=== PATIENT | male | born 1965 | race Hispanic/Latino ===

== ENCOUNTER → 2018-03-04 | Day surgery (SDC) | payer BC ==
[~2018-03-04] MED LIST: FENTANYL CITRATE/PF 100MCG/2 ML INJ ONE; HYOSCYAMINE SULFATE 0.5 MG/ML AMP ONE; MIDAZOLAM HCL 2 MG/2 ML VIAL ONE; PRAVASTATIN SOD10 MG; PROPOFOL IV EMULSION 10 MG/ML 50 ML VIAL ONE; TYLENOL
--- NOTE | 2018-03-04 13:11 | Operative Report ---
DATE OF PROCEDURE: March 04, 2018 REFERRING PHYSICIAN: Dr. Cameron Knight PROCEDURE PERFORMED: Colonoscopy. INDICATION FOR COLONOSCOPY: Colorectal cancer screening. MEDICATION: Patient was done under MAC. Please see anesthesiologist's note. PROCEDURE: With the patient in the left lateral decubitus position, the flexible fiberoptic Olympus colonoscope was inserted into the rectum with ease and advanced all the way to the cecum. The scope was then withdrawn slowly. Mucosa overlying the cecum, ascending, transverse, descending, sigmoid and rectum appeared to be within normal limits. The scope was then retroflexed into the distal rectum, and small internal hemorrhoids were noted, none of which was actively bleeding. The scope was then straightened out. It was subsequently withdrawn. Patient tolerated the procedure well. IMPRESSION: Internal hemorrhoids, none actively bleeding. PLAN: Initiate high-fiber, low-fat diet. Initiate high-fiber supplement. Patient will need a followup colonoscopy in 5 to 10 years. Job#: [id number] cc:KACEY KNIGHT DO
== END | disposition home or self-care (01) ==
LOC: ENDO 07:51
PROVIDERS: ATTEND Internal Medicine Gastroenterology
DX: Z12.11 Encounter for screening for malignant neoplasm of colon (principal); R03.0 Elevated blood-pressure reading, without diagnosis of hypertension; E78.5 Hyperlipidemia, unspecified; K64.8 Other hemorrhoids; Z01.810 Encounter for preprocedural cardiovascular examination
CPT/HCPCS: 45378; 93005; J1980; J2250

== ENCOUNTER → 2018-04-20 | Day surgery (SDC) | payer BC ==
[~2018-04-20] MED LIST changes: +BUPIVACAINE HCL 0.5% INJ 30 ML VIAL INJ ONE; +CEFAZOLIN SOD 1 GM VIAL ONE; +DEXAMETHASONE SOD PHOS INJ 4 MG/ML VIAL ONE; -HYOSCYAMINE SULFATE 0.5 MG/ML AMP ONE; +LIDOCAINE HCL 2% LOCAL INJ 5 ML SDV VIAL INJ ONE; +MUPIROCIN 2% OINT 22 GM TUBE ONE; +ONDANSETRON HCL INJ 2 MG/ML VIAL ONE; -PRAVASTATIN SOD10 MG; +PRAVASTATIN SOD10 MG PO; +PROPOFOL IV EMULSION 10 MG/ML 20 ML VIAL ONE; -PROPOFOL IV EMULSION 10 MG/ML 50 ML VIAL ONE; +SEVOFLURANE INHAL SOLN 250 ML PEN BTL ONE; -TYLENOL; +TYLENOL PO
--- NOTE | 2018-04-20 10:08 | Operative Report ---
DATE OF PROCEDURE: April 20, 2018 PREOPERATIVE DIAGNOSIS: Cyst, dorsal left wrist, congenital extensor digitorum brevis manus muscle. POSTOPERATIVE DIAGNOSIS: Cyst, dorsal left wrist, congenital extensor digitorum brevis manus muscle. PROCEDURE: Excision of left wrist dorsal ganglion cyst. ANESTHESIA: General. HISTORY: The patient is a 52-year-old right-hand dominant male who has a large symptomatic cyst on the dorsal aspect of the left wrist. Risks, benefits and alternatives of treatment were discussed with the patient. He is prepared to undergo the procedures outlined. DETAILS OF PROCEDURE: Patient was marked preoperatively in the holding area. He was brought to the operating theater. After the induction of adequate general anesthesia, he was prepped and draped in a supine position, and a time out was performed. A transverse incision was marked out over the prominence of the cyst. The left upper extremity was exsanguinated and tourniquet inflated to a pressure of 250 mmHg. The incision was made through the skin and subcutaneous tissues. Venous tributaries were controlled with the bipolar cautery. The incision was deepened through the subcutaneous plane until the cyst was identified emanating from the distal aspect of the extensor retinaculum. The extensor retinaculum was then bluntly elevated off of the dorsal aspect of the cyst. The cyst was then dissected down through the 4th dorsal compartment. 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 The cyst was carefully excised off of the muscle taking care not to disrupt the fibers of the muscle. At this point, the cyst is traced all the way down to the dorsal wrist capsule, and it was excised with its communicating stalk and a small portion of the joint capsule. At this point, the rent in the capsule was fulgurated using the bipolar cautery. The wound was copiously irrigated with bacteriostatic saline and then closed with 5-0 nylon in an interrupted horizontal mattress fashion. A Marcaine field block was performed at the operative site. Tourniquet was deflated. All the fingers pinked up nicely. Then Xeroform gauze, Bactroban ointment and a sterile bulking conforming bandage were applied. Patient tolerated the procedure well. Was brought to the recovery room in satisfactory condition, and discharged with a postoperative instruction sheet, as well as a followup appointment. Job#: [id number] RI
== END | disposition home or self-care (01) ==
LOC: OR 05:09
PROVIDERS: ATTEND Plastic Surgery
DX: M67.432 Ganglion, left wrist (principal); M62.89 Other specified disorders of muscle; E78.5 Hyperlipidemia, unspecified; Z01.810 Encounter for preprocedural cardiovascular examination
CPT/HCPCS: 25111; 88304; 93005; J0690; J1100; J2001; J2250; J2405